=== PATIENT | male | born 1955 | race Caucasian/White ===

== ENCOUNTER 2020-08-11 19:39 | Emergency (ER) | payer BC ==
[~2020-08-11] VITALS: Ht 190.5 cm; Wt 86.1 kg
[2020-08-11 23:02] VITALS: BP 138/80
== END 2020-08-11 23:04 | disposition home or self-care (01) ==
LOC: ER 19:41
DX: K40.90 Unilateral inguinal hernia, without obstruction or gangrene, not specified as recurrent (principal); R10.31 Right lower quadrant pain
CPT/HCPCS: 99281

== ENCOUNTER 2020-09-18 10:23 | Emergency (ER) | payer BC ==
[~2020-09-18] VITALS: Ht 190.5 cm; Wt 84.1 kg
[2020-09-18] MEDS ORDERED: LOSA1TAB36 (11:12)
[2020-09-18] MEDS ORDERED: APIX5TAB3 (11:12)
[2020-09-18] MEDS ORDERED: HYDR-4353 PO (13:27)
[2020-09-18 13:37] VITALS: BP 129/86
== END 2020-09-18 13:54 | disposition home or self-care (01) ==
LOC: ER 10:23
DX: S82.143A Displaced bicondylar fracture of unspecified tibia, initial encounter for closed fracture (principal); S83.005A Unspecified dislocation of left patella, initial encounter; M17.12 Unilateral primary osteoarthritis, left knee; X50.9XXA Other and unspecified overexertion or strenuous movements or postures, initial encounter; Y93.02 Activity, running; Y92.89 Other specified places as the place of occurrence of the external cause; Y99.8 Other external cause status
CPT/HCPCS: 29505; 73564; 73700; 99284

== ENCOUNTER 2021-12-07 07:45 | Inpatient (IN) | payer BC ==
[2021-12-05 14:34] LABS: BASOPHILS # (AUTO) 0.1 X10'3 (0-0.2); BASOPHILS % (AUTO) 0.9 % (0-1); EOSINOPHILS # (AUTO) 0.1 X10'3 (0-0.9); EOSINOPHILS % (AUTO) 1.8 % (0-6); LYMPHOCYTES # (AUTO) 1.6 X10'3 (1.1-4.8); LYMPHOCYTES % (AUTO) 22.7 % (21-51); MEAN CORPUSCULAR HEMOGLOBIN 32.4 PG (27.0-31.0); MEAN CORPUSCULAR VOLUME 95.4 FL (78-98); MONOCYTES # (AUTO) 0.9 X10'3 (0-0.9); MONOCYTES % (AUTO) 13.2 % (2-12); NEUTROPHILS # (AUTO) 4.3 X10'3 (1.8-7.7); NEUTROPHILS % (AUTO) 61.4 % (42-75); PRE OP HEMATOCRIT 46.4 % (42.0-52.0); PRE OP HEMOGLOBIN 15.8 g/dL (14.0-17.9); PRE OP PLATELET COUNT 257 X10'3 (140-440); RED BLOOD COUNT 4.86 X10'6 (4.70-6.10)
[2021-12-05 14:36] LABS: CLARITY,URINE CLEAR (Clear); COLOR,URINE YELLOW (Yellow); GLUCOSE, URINE NEGATIVE (Neg); KETONES,URINE NEGATIVE (Neg); LEUKOCYTE ESTERASE ,URINE NEGATIVE (Neg); NITRITES, URINE NEGATIVE (Neg); OCCULT BLOOD,URINE NEGATIVE (Neg); PH,URINE 5.5 (4.8-8.0); PROTEIN,URINE NEGATIVE (Neg); UROBILINOGEN,URINE 0.2 E.U/dL (0.2-1.0)
[2021-12-05 14:49] LABS: PRE OP INR 1.2 INR; PRE OP PROTIME 11.9 SECONDS (9.0-12.0)
[2021-12-05 14:54] LABS: UA COLLECTION TYPE CLN CATCH MIDSTREAM
[2021-12-05 15:31] LABS: ALBUMIN 3.3 G/DL (3.4-5.0); ALBUMIN/GLOBULIN RATIO 0.9 (1.1-1.5); ALKALINE PHOSPHATASE 104 IU/L (46-116); BLOOD UREA NITROGEN 19 MG/DL (7-18); BUN/CREATININE RATIO 19.6 (5.4-32.0); CALCIUM 8.1 MG/DL (8.5-10.1); CHLORIDE 108 MMOL/L (99-107); CREATININE 0.97 MG/DL (0.60-1.10); PRE OP ALT 42 U/L (30-65); PRE OP ANION GAP 1 (8-16); PRE OP AST 31 U/L (10-37); PRE OP BILIRUB, TOTAL 0.8 MG/DL (0.0-1.0); PRE OP GLUCOSE 80 MG/DL (70-104); PRE OP SODIUM 140 MMOL/L (135-145); TOTAL CARBON DIOXIDE 30.6 MMOL/L (24-32); TOTAL PROTEIN 7.1 G/DL (6.4-8.2); eGFR 78 ML/MIN
[2021-12-06 07:41] LABS: ABG BASE EXCESS -0.8 mmol/L (-2.0-2.0); ABG HCO3 22.2 mmol/L (22.0-26.0); ABG OXYGEN SATURATION 96.5 % (94-97); ABG PCO2 (T) 32.7 mmHg (35.0-48.0); ABG PO2 (T) 76.9 mmHg (75.0-100.0); ALLEN'S TEST POSITIVE; FCOHb 1.9 % (0.0-3.9); FMetHb 0.1 % (0.0-1.5); FO2Hb 94.6 % (94-97); TOTAL HEMOGLOBIN 16.5 G/dl (14.0-18.0)
[~2021-12-07] VITALS: Ht 190.5 cm; Wt 87.5 kg
[2021-12-07] VITALS (14 sets, daily range): BP systolic 87–132; BP diastolic 49–81
[2021-12-07] MEDS: Insulin Reg/NS 100units/100mL 100 ML IV SCH (06:00)
[~2021-12-07 07:45] MED LIST: APIX5TAB3 PO; ATOR10TA87 PO; DOCUMENT DATE & TIME OF BETA-BLOCKER PO ONE; LOSA1TAB36 PO; MALTODEXTRIN/FRUCTOSE 0.68 KCAL/ML LIQUID 296ML BOTTLE PO ONE; SOTA80TA PO; dextrose 50%-water 50ml dispensing syringe IV PRN; famotidine 20mg tablet PO ONE; gabapentin 300mg capsule PO ONE; metoprolol tartrate 12.5mg (1/2 tablet) PO ONE; ringers solution, lacted 1,000 ML IV SCH
[2021-12-07] MEDS ORDERED: VANCOMYCIN 1,500MG inj. 1,500 MG in normal saline 250ml IV soln 300 ML IV ONE (09:05)
[2021-12-07] MEDS ORDERED: cefazolin/dext.iso 2gm/50ml 50 ML IV ONE (09:05)
[2021-12-07] MEDS ORDERED: LORazepam 2 mg/ml vial IV PRN (09:25)
[2021-12-07] MEDS: mupirocin 2% nasal ointment 1gm UD NS SCH ×3 (10:00→20:09)
[2021-12-07] MEDS ORDERED: methylPREDNISolone sod. succ. 500mg inj ONE (11:00)
[2021-12-07] MEDS ORDERED: sodium bicarbonate (8.4%) 1 mEq/ml syringe ONE (11:00)
[2021-12-07] MEDS ORDERED: MAGNESIUM SULFATE 4 MEQ/ML (5gm/10ml) injection ONE (11:00)
[2021-12-07] MEDS ORDERED: heparin 10,000 units/1 ML INJ ONE (11:00)
[2021-12-07] MEDS ORDERED: albumin (human) 25% 100 ML IV solution IV ONE (11:00)
[2021-12-07] MEDS ORDERED: aminocaproic acid 250 MG/1 ML inj. ONE (11:00)
[2021-12-07] MEDS ORDERED: heparin 1,000 units/ml 10ml inj ONE (11:00)
[2021-12-07] MEDS ORDERED: LIDOcaine 2% (20 mg/ml) 5ml cardiac syringe ONE (11:00)
[2021-12-07] MEDS ORDERED: calcium chloride 100 MG/1 ML inj IV ONE (11:00)
[2021-12-07] MEDS ORDERED: SUFENTANIL CITRATE 50 MCG/ML 2ml ampule IV ONE (11:08)
[2021-12-07] MEDS ORDERED: midazolam 1 mg/ML 2ml injection ONE (11:11)
[2021-12-07] MEDS ORDERED: epiNEPHrine 1 mg/ml inj ONE (11:40)
[2021-12-07 12:55] LABS: ABG BASE EXCESS -1.8 mmol/L (-2.0-2.0); ABG HCO3 23.3 mmol/L (22.0-26.0); ABG OXYGEN SATURATION 99.4 % (94-97); ABG PCO2 40.7 mmHg (35.0-48.0); ABG PO2 297.6 mmHg (75.0-100.0); CL (ABG) 104 mmol/L (98-110); FCOHb 0.5 % (0.0-3.9); FMetHb 0.3 % (0.0-1.5); FO2Hb 98.6 % (94-97); GLUCOSE (ABG) 104 mg/dl (70-105); IONIZED CA (ABG) 1.06 mmol/L (1.10-1.43); K (ABG) 4.4 mmol/L (3.5-5.0)
[2021-12-07] MEDS ORDERED: ceFAZolin 1000mg inj IR ONE (13:07)
[2021-12-07 13:33] LABS: ABG BASE EXCESS VENOUS -2.1 mmol/L (-2.0 - 2.0); ABG HCO3 VENOUS 23.9 mmol/L (21.0-28.0); ABG PCO2 VENOUS 45.9 mmHg (41.0-54.0); ABG PO2 VENOUS 59.9 mmHg (25.0-35.0); CL (ABG) 105 mmol/L (98-110); FCOHb VENOUS 1.2 %; FHHb VENOUS 9.6 %; FMetHb VENOUS 0.3 % (0.0 - 0.5); FO2Hb VENOUS 88.9 %; GLUCOSE (ABG) 160 mg/dl (70-105); IONIZED CA (ABG) 1.07 mmol/L (1.10-1.43); K (ABG) 4.2 mmol/L (3.5-5.0)
[2021-12-07] MEDS ORDERED: ipratropium/albuterol 3ml nebule IH PRN (13:35)
[2021-12-07 13:56] LABS: ABG BASE EXCESS -2.7 mmol/L (-2.0-2.0); ABG HCO3 21.3 mmol/L (22.0-26.0); ABG OXYGEN SATURATION 99.4 % (94-97); ABG PCO2 34.4 mmHg (35.0-48.0); ABG PO2 249.1 mmHg (75.0-100.0); CL (ABG) 105 mmol/L (98-110); FCOHb 0.8 % (0.0-3.9); FMetHb 0.3 % (0.0-1.5); FO2Hb 98.3 % (94-97); GLUCOSE (ABG) 174 mg/dl (70-105); IONIZED CA (ABG) 1.08 mmol/L (1.10-1.43); K (ABG) 4.9 mmol/L (3.5-5.0); TOTAL HEMOGLOBIN 11.9 G/dl (14.0-18.0)
[2021-12-07 14:28] LABS: ABG BASE EXCESS -0.6 mmol/L (-2.0-2.0); ABG HCO3 23.6 mmol/L (22.0-26.0); ABG OXYGEN SATURATION 99.5 % (94-97); ABG PO2 328.7 mmHg (75.0-100.0); CL (ABG) 105 mmol/L (98-110); FCOHb 0.8 % (0.0-3.9); FMetHb 0.3 % (0.0-1.5); FO2Hb 98.4 % (94-97); GLUCOSE (ABG) 147 mg/dl (70-105); IONIZED CA (ABG) 1.27 mmol/L (1.10-1.43); K (ABG) 5.3 mmol/L (3.5-5.0); TOTAL HEMOGLOBIN 11.6 G/dl (14.0-18.0)
[2021-12-07 14:51] LABS: ACTIVATED CLOTTING TIME 117 SEC (101-148)
[2021-12-07] MEDS ORDERED: LIDOcaine 2% (20mg/ml) 5ml vial ONE (15:18)
[2021-12-07] MEDS ORDERED: etomidate 2mg/ml inj. ONE (15:18)
[2021-12-07] MEDS ORDERED: phenylephrine 10mg/ml inj. ONE (15:18)
[2021-12-07] MEDS ORDERED: rocuronium 10mg/ml inj IV ONE (15:18)
[2021-12-07] MEDS ORDERED: bisacodyl 10mg suppository rectal RC PRN (15:25)
[2021-12-07] MEDS ORDERED: magnesium 2GM in 50ml NS 50 ML IV PRN (15:25)
[2021-12-07] MEDS ORDERED: magnesium 4gm in 100ml NS 100 ML IV PRN (15:25)
[2021-12-07] MEDS ORDERED: NORepinephrine 8mg/ 250ml NS 250 ML IV PRN (15:25)
[2021-12-07] MEDS ORDERED: sodium phosphate inj. 30 MMOL in dextrose 5%-water 250 ML IV PRN (15:25)
[2021-12-07] MEDS ORDERED: ondansetron/PF 4mg/2ml inj IV PRN (15:25)
[2021-12-07] MEDS ORDERED: dextrose 50%-water 50ml dispensing syringe IV PRN (15:25)
[2021-12-07] MEDS ORDERED: mineral oil 133ml enema RC PRN (15:25)
[2021-12-07] MEDS ORDERED: morphine 4 MG/ML inj SYRINge IV PRN (15:25)
[2021-12-07] MEDS ORDERED: acetaminophen 325mg tablet PO PRN (15:25)
[2021-12-07] MEDS ORDERED: insulin glargine (Lantus) pen - multi-dose SQ PRN (15:25)
[2021-12-07] MEDS ORDERED: niCARDipine-NS 40mg/200ml IVPB 200 ML IV PRN (15:25)
[2021-12-07] MEDS ORDERED: Insulin Reg/NS 100units/100mL 100 ML IV SCH (15:25)
[2021-12-07] MEDS ORDERED: HYDROcodone/acetaminophen 10/325mg tab PO PRN (15:25)
[2021-12-07] MEDS ORDERED: Neutra Phos packet PO PRN (15:25)
[2021-12-07] MEDS ORDERED: metoclopramide 5 mg/ml inj IV PRN (15:25)
[2021-12-07] MEDS ORDERED: magnesium citrate 296ml oral solution PO PRN (15:25)
[2021-12-07] MEDS ORDERED: sodium phosphate inj. 15 MMOL in dextrose 5%-water 250 ML IV PRN (15:25)
[2021-12-07] MEDS ORDERED: nitroGLYCERIN-Tridil 50MG/D5W 250 ML IV PRN (15:25)
[2021-12-07] MEDS ORDERED: magnesium hydroxide 30ml (MOM) UD suspension PO PRN (15:25)
[2021-12-07] MEDS ORDERED: morphine 2 MG/ML inj. syringe IV PRN (15:25)
--- NOTE | 2021-12-07 15:30 | NUR ---
Received to room , accompanied by MDs and surgical crew. Placed on ventilator, to monitor car operator, arterial line and PA line pressure monitored. Chest tubes to suction at 20 cm. Toth cath to gravity drainage. Dressings are dry and intact. See assessment record. All vasoactive drugs are infusing via central line.
[2021-12-07 15:40] LABS: ABG BASE EXCESS -2.2 mmol/L (-2.0-2.0); ABG HCO3 22.6 mmol/L (22.0-26.0); ABG OXYGEN SATURATION 98.9 % (94-97); ABG PCO2 (T) 38.8 mmHg (35.0-48.0); ABG PO2 (T) 194.5 mmHg (75.0-100.0); FCOHb 0.6 % (0.0-3.9); FMetHb 0.4 % (0.0-1.5); FO2Hb 97.9 % (94-97); PEEP 5 cm H2O; RESPIRATORY RATE 12 b/min; TIDAL VOLUME 650 mL; TOTAL HEMOGLOBIN 13.5 G/dl (14.0-18.0)
[2021-12-07 15:57] LABS: BASOPHILS % (AUTO) 0.3 % (0-1); EOSINOPHILS % (AUTO) 0.3 % (0-6); HEMATOCRIT 36.1 % (42.0-52.0); HEMOGLOBIN 12.6 g/dl (14.0-17.9); LYMPHOCYTES # (AUTO) 0.6 X10'3 (1.1-4.8); LYMPHOCYTES % (AUTO) 4.8 % (21-51); MEAN CORPUSCULAR HEMOGLOBIN 32.4 PG (27.0-31.0); MEAN CORPUSCULAR HGB CONC 34.9 g/dL (33.0-36.5); MEAN CORPUSCULAR VOLUME 92.8 FL (78-98); MEAN PLATELET VOLUME 7.5 FL (7.4-10.4); MONOCYTES # (AUTO) 0.6 X10'3 (0-0.9); MONOCYTES % (AUTO) 5.4 % (2-12); NEUTROPHILS # (AUTO) 10.8 X10'3 (1.8-7.7); NEUTROPHILS % (AUTO) 89.2 % (42-75); PLATELET COUNT 128 X10'3 (140-440); RED CELL DISTRIBUTION WIDTH 13.1 % (11.5-14.5); WHITE BLOOD COUNT 12.1 X10'3 (4.5-11.0)
[2021-12-07 16:10] LABS: APTT 29 SECONDS (22-32)
[2021-12-07 16:11] LABS: ALANINE AMINOTRANSFERASE 29 U/L (12-78); ALBUMIN 2.7 G/DL (3.4-5.0); ALBUMIN/GLOBULIN RATIO 1.1 (1.1-1.5); ALKALINE PHOSPHATASE 69 IU/L (46-116); ANION GAP 3 (8-16); ASPARTATE AMINO TRANSFERASE 35 U/L (10-37); BILIRUBIN,TOTAL 1.1 MG/DL (0.1-1.0); BLOOD UREA NITROGEN 13 MG/DL (7-18); BUN/CREATININE RATIO 12.5 (5.4-32.0); CALCIUM 8.1 MG/DL (8.5-10.1); CHLORIDE 111 MMOL/L (99-107); CREATININE 1.04 MG/DL (0.60-1.10); GLUCOSE 87 MG/DL (70-104); MAGNESIUM 3.9 MG/DL (1.5-2.4); SODIUM 140 MMOL/L (135-145); TOTAL CARBON DIOXIDE 25.8 MMOL/L (24-32); TOTAL PROTEIN 5.1 G/DL (6.4-8.2); eGFR 72 ML/MIN
[2021-12-07 16:16] LABS: POTASSIUM 3.8 MMOL/L (3.5-5.1)
[2021-12-07 16:18] LABS: PHOSPHORUS 1.2 MG/DL (2.3-4.5)
[2021-12-07] MEDS: sodium chloride 0.45% 1,000 ML IV SCH (17:00)
[2021-12-07 17:09] LABS: HEMOGLOBIN A1C 4.8 % (4.5-6.2)
[2021-12-07] MEDS: ceFAZolin/D5W- 1GM premix 50 ML IV SCH (17:45)
[2021-12-07] MEDS: potassium CL 10mEq/100ml bag 100 ML IV PRN (18:08)
--- NOTE | 2021-12-07 18:30 | NUR ---
Patient in room ICU 2042. I have received report from Genie SNOW and had the opportunity to ask questions and assume patient care.
[2021-12-07] MEDS ORDERED: DOPamine 400mg/D5W 250ml 250 ML IV SCH (19:15)
--- NOTE | 2021-12-07 19:40 | NUR ---
Patient opens eyes, following commands. Bradycardic in the 50s, hypotensive. Dr. Shaffer at bedside. Dopamine increased to 3mcg/kg/min per MD. HR increased to 77, BP improved. Will continue to monitor closely.
[2021-12-07] MEDS: sennosides/docusate sodium tablet PO SCH (20:00)
[2021-12-07] MEDS: lactobacillus rhamnosus 10,000 MMU CELLS/CAPSULE PO SCH (20:00)
[2021-12-07] MEDS: vancomycin/NS 1 GM ADD-VANTAGE 250 ML IV SCH (20:08)
[2021-12-07] MEDS: potassium Cl 20mEq/100mL bag 100 ML IV PRN ×2 (20:09→21:03)
[2021-12-07] MEDS: atorvastatin 10mg tablet PO SCH (20:10)
[2021-12-07] MEDS: gabapentin 300mg capsule PO SCH (20:10)
[2021-12-07 22:08] LABS: ABG BASE EXCESS -5.3 mmol/L (-2.0-2.0); ABG HCO3 18.7 mmol/L (22.0-26.0); ABG OXYGEN SATURATION 97.2 % (94-97); ABG PCO2 (T) 31.8 mmHg (35.0-48.0); ABG PO2 (T) 91.3 mmHg (75.0-100.0); FCOHb 0.7 % (0.0-3.9); FMetHb 0.3 % (0.0-1.5); FO2Hb 96.2 % (94-97); PATIENT TEMPERATURE 36.4; PEEP 5 cm H2O; TOTAL HEMOGLOBIN 15.3 G/dl (14.0-18.0)
--- NOTE | 2021-12-07 22:27 | NUR ---
2224: Extubated patient with RT after successful SBT. Patient awake and alert, sats 100% on 4LNC. Medicated for pain for pain level of 6/10 per patient statement.
[2021-12-07 22:40] LABS: BASOPHILS % (AUTO) 0.1 % (0-1); EOSINOPHILS % (AUTO) 0 % (0-6); HEMATOCRIT 41.9 % (42.0-52.0); HEMOGLOBIN 14.4 g/dl (14.0-17.9); LYMPHOCYTES # (AUTO) 0.4 X10'3 (1.1-4.8); LYMPHOCYTES % (AUTO) 2.9 % (21-51); MEAN CORPUSCULAR HEMOGLOBIN 32.2 PG (27.0-31.0); MEAN CORPUSCULAR HGB CONC 34.4 g/dL (33.0-36.5); MEAN CORPUSCULAR VOLUME 93.7 FL (78-98); MONOCYTES # (AUTO) 0.9 X10'3 (0-0.9); MONOCYTES % (AUTO) 6.2 % (2-12); NEUTROPHILS # (AUTO) 13.3 X10'3 (1.8-7.7); NEUTROPHILS % (AUTO) 90.8 % (42-75); PLATELET COUNT 113 X10'3 (140-440); RED BLOOD COUNT 4.47 X10'6 (4.70-6.10); RED CELL DISTRIBUTION WIDTH 13.4 % (11.5-14.5); WHITE BLOOD COUNT 14.6 X10'3 (4.5-11.0)
[2021-12-07] MEDS: pantoprazole 40MG/NS 100ML BAG 100 ML IV SCH (22:48)
[2021-12-07] MEDS: albumin (Human) 5% 250ml 250 ML IV PRN (22:50)
[2021-12-07 23:13] LABS: ANION GAP 11 (8-16); BLOOD UREA NITROGEN 15 MG/DL (7-18); BUN/CREATININE RATIO 15.3 (5.4-32.0); CALCIUM 8.2 MG/DL (8.5-10.1); CHLORIDE 111 MMOL/L (99-107); CREATININE 0.98 MG/DL (0.60-1.10); GLUCOSE 165 MG/DL (70-104); MAGNESIUM 2.8 MG/DL (1.5-2.4); PHOSPHORUS 3.1 MG/DL (2.3-4.5); POTASSIUM 4.4 MMOL/L (3.5-5.1); SODIUM 142 MMOL/L (135-145); TOTAL CARBON DIOXIDE 19.9 MMOL/L (24-32); eGFR 77 ML/MIN
[2021-12-08] VITALS (24 sets, daily range): BP systolic 89–117; BP diastolic 51–64
[2021-12-08] MEDS: ceFAZolin/D5W- 1GM premix 50 ML IV SCH ×4 (00:42→23:41)
[2021-12-08] MEDS: albumin (Human) 5% 250ml 250 ML IV PRN (00:43)
--- NOTE | 2021-12-08 02:17 | NUR ---
Patient nauseated with small amout of emesis. Zofran given.
[2021-12-08 02:47] LABS: APTT 26 SECONDS (22-32)
[2021-12-08 02:48] LABS: BASOPHILS % (AUTO) 0.2 % (0-1); EOSINOPHILS % (AUTO) 0 % (0-6); HEMOGLOBIN 12.4 g/dl (14.0-17.9); LYMPHOCYTES # (AUTO) 0.5 X10'3 (1.1-4.8); LYMPHOCYTES % (AUTO) 3.8 % (21-51); MEAN CORPUSCULAR HEMOGLOBIN 32.1 PG (27.0-31.0); MEAN CORPUSCULAR HGB CONC 34.4 g/dL (33.0-36.5); MEAN CORPUSCULAR VOLUME 93.3 FL (78-98); MEAN PLATELET VOLUME 7.8 FL (7.4-10.4); MONOCYTES # (AUTO) 0.7 X10'3 (0-0.9); MONOCYTES % (AUTO) 5.5 % (2-12); NEUTROPHILS % (AUTO) 90.5 % (42-75); PLATELET COUNT 83 X10'3 (140-440); RED BLOOD COUNT 3.85 X10'6 (4.70-6.10); RED CELL DISTRIBUTION WIDTH 13.7 % (11.5-14.5); WHITE BLOOD COUNT 12.2 X10'3 (4.5-11.0)
[2021-12-08 03:08] LABS: ALANINE AMINOTRANSFERASE 33 U/L (12-78); ALBUMIN 3.1 G/DL (3.4-5.0); ALBUMIN/GLOBULIN RATIO 1.6 (1.1-1.5); ALKALINE PHOSPHATASE 64 IU/L (46-116); ANION GAP 9 (8-16); ASPARTATE AMINO TRANSFERASE 46 U/L (10-37); BILIRUBIN,TOTAL 1.3 MG/DL (0.1-1.0); BLOOD UREA NITROGEN 14 MG/DL (7-18); BUN/CREATININE RATIO 15.4 (5.4-32.0); CALCIUM 8.3 MG/DL (8.5-10.1); CHLORIDE 112 MMOL/L (99-107); CREATININE 0.91 MG/DL (0.60-1.10); GLUCOSE 117 MG/DL (70-104); MAGNESIUM 2.6 MG/DL (1.5-2.4); PHOSPHORUS 3.1 MG/DL (2.3-4.5); POTASSIUM 3.7 MMOL/L (3.5-5.1); SODIUM 143 MMOL/L (135-145); TOTAL CARBON DIOXIDE 22.3 MMOL/L (24-32); TOTAL PROTEIN 5.1 G/DL (6.4-8.2); eGFR 84 ML/MIN
[2021-12-08] MEDS: potassium Cl 20mEq/100mL bag 100 ML IV PRN ×2 (03:44→04:39)
--- NOTE | 2021-12-08 06:12 | NUR ---
Problems reprioritized. Patient report given, questions answered & plan of care reviewed with Genie SNOW.
--- NOTE | 2021-12-08 06:30 | NUR ---
Patient in room ICU 2042. I have received report from natalya and had the opportunity to ask questions and assume patient care.
[2021-12-08] MEDS: metoprolol tartrate 12.5mg (1/2 tablet) PO SCH ×2 (08:00→20:00)
[2021-12-08] MEDS: mupirocin 2% nasal ointment 1gm UD NS SCH ×4 (08:00→20:05)
[2021-12-08] MEDS: vancomycin/NS 1 GM ADD-VANTAGE 250 ML IV SCH ×2 (08:06→19:57)
[2021-12-08] MEDS: sennosides/docusate sodium tablet PO SCH ×2 (08:07→19:50)
[2021-12-08] MEDS: aspirin 325mg tablet, delayed-release (Ecotrin) PO SCH (08:07)
[2021-12-08] MEDS: gabapentin 300mg capsule PO SCH ×3 (08:07→21:00)
[2021-12-08] MEDS: lactobacillus rhamnosus 10,000 MMU CELLS/CAPSULE PO SCH ×2 (08:07→19:50)
[2021-12-08] MEDS: pantoprazole 40MG/NS 100ML BAG 100 ML IV SCH ×2 (08:11→19:57)
[2021-12-08] MEDS: potassium CL 10mEq/100ml bag 100 ML IV PRN ×2 (08:12→12:00)
[2021-12-08] MEDS: HYDROcodone/acetaminophen 10/325mg tab PO PRN ×2 (08:35→20:32)
--- NOTE | 2021-12-08 09:26 | NUR ---
Nutrition consult: Pt POD #1 s/p aortic root replacement. Pt would benefit from protein education once stable. Will continue to follow. Addendum: 12/08/21 at [address] Amended: Links added.
--- NOTE | 2021-12-08 15:00 | NUR ---
levophed and dopamine weaned off early am. baldev dcd. up in chair x 2 hrs for lunch and ambulated with pt- tolerated well. tommie x 1. at bs
[2021-12-08] MEDS: Insulin Reg/NS 100units/100mL 100 ML IV SCH (15:20)
[2021-12-08] MEDS ORDERED: dextrose 50%-water 50ml dispensing syringe IV PRN ×2 (18:35)
[2021-12-08] MEDS ORDERED: dextrose ORAL solution 15 GM/59 ML bottle PO PRN ×2 (18:35)
[2021-12-08] MEDS ORDERED: glucagon, human recombinant 1mg kit SUBCUT PRN (18:35)
[2021-12-08] MEDS ORDERED: insulin Lispro (HumaLOG) vial - multi-dose SQ SCH (18:35)
[2021-12-08] MEDS: atorvastatin 10mg tablet PO SCH (19:55)
[2021-12-08] MEDS: acetaminophen 325mg tablet PO PRN (20:31)
[2021-12-08] MEDS: insulin glargine (Lantus) pen - multi-dose SQ SCH (21:00)
[2021-12-09] VITALS (23 sets, daily range): BP systolic 78–107; BP diastolic 43–63
[2021-12-09 03:11] LABS: BASOPHILS % (AUTO) 0 % (0-1); EOSINOPHILS % (AUTO) 0 % (0-6); HEMATOCRIT 31.4 % (42.0-52.0); HEMOGLOBIN 10.6 g/dl (14.0-17.9); LYMPHOCYTES # (AUTO) 1.1 X10'3 (1.1-4.8); MEAN CORPUSCULAR HGB CONC 33.7 g/dL (33.0-36.5); MEAN PLATELET VOLUME 8.6 FL (7.4-10.4); MONOCYTES # (AUTO) 1.8 X10'3 (0-0.9); NEUTROPHILS # (AUTO) 11.2 X10'3 (1.8-7.7); PLATELET COUNT 65 X10'3 (140-440); RED BLOOD COUNT 3.31 X10'6 (4.70-6.10); RED CELL DISTRIBUTION WIDTH 13.8 % (11.5-14.5); WHITE BLOOD COUNT 14.2 X10'3 (4.5-11.0)
[2021-12-09 03:29] LABS: ALBUMIN 2.5 G/DL (3.4-5.0); ANION GAP 5 (8-16); BLOOD UREA NITROGEN 16 MG/DL (7-18); BUN/CREATININE RATIO 15.4 (5.4-32.0); CALCIUM 7.9 MG/DL (8.5-10.1); CHLORIDE 105 MMOL/L (99-107); CREATININE 1.04 MG/DL (0.60-1.10); GLUCOSE 121 MG/DL (70-104); PHOSPHORUS 2.3 MG/DL (2.3-4.5); POTASSIUM 4.4 MMOL/L (3.5-5.1); SODIUM 137 MMOL/L (135-145); TOTAL CARBON DIOXIDE 27.3 MMOL/L (24-32); eGFR 72 ML/MIN
[2021-12-09] MEDS: potassium Cl 20 mEq SR tablet PO PRN (04:34)
[2021-12-09] MEDS: acetaminophen 325mg tablet PO PRN ×2 (04:34→20:12)
[2021-12-09] MEDS ORDERED: albumin (Human) 5% 250ml 250 ML IV ONE (05:35)
[2021-12-09] MEDS: pantoprazole 40MG/NS 100ML BAG 100 ML IV SCH ×2 (08:00→20:11)
[2021-12-09] MEDS: mupirocin 2% nasal ointment 1gm UD NS SCH ×3 (08:00→20:00)
[2021-12-09] MEDS: metoprolol tartrate 12.5mg (1/2 tablet) PO SCH ×2 (08:00→20:00)
[2021-12-09] MEDS: pantoprazole 40mg Tablet.DR PO SCH (08:15)
[2021-12-09] MEDS: aspirin 325mg tablet, delayed-release (Ecotrin) PO SCH (08:15)
[2021-12-09] MEDS: gabapentin 300mg capsule PO SCH ×2 (08:15→13:09)
[2021-12-09] MEDS: sennosides/docusate sodium tablet PO SCH ×2 (08:15→20:11)
[2021-12-09] MEDS: ascorbic acid 500mg tablet PO SCH ×2 (08:15→17:24)
[2021-12-09] MEDS: lactobacillus rhamnosus 10,000 MMU CELLS/CAPSULE PO SCH ×2 (08:15→20:11)
--- NOTE | 2021-12-09 11:58 | NUR ---
Nutrition consult: Pt s/p aortic root replacement this admit. Provided PtS/O w/ written and verbal high protein diet ed w/ RD contact info. Addendum: 12/09/21 at [address] Amended: Links added.
[2021-12-09] MEDS: sodium chloride 0.45% 1,000 ML IV SCH (15:25)
[2021-12-09] MEDS ORDERED: amiodarone 50MG/ML inj IV ONE (17:20)
[2021-12-09] MEDS ORDERED: amiodarone 150mg/dext, iso-os 100 ML IV ONE ×2 (17:22→17:30)
[2021-12-09] MEDS: amiodarone/D5 360MG/200ML BAG 200 ML IV SCH ×2 (17:51→23:28)
--- NOTE | 2021-12-09 18:14 | NUR ---
1707- pt went into rapid afib, call md. start amio 150 bolus over 30 min then gtt of 1mg/min rate.
[2021-12-09] MEDS: atorvastatin 10mg tablet PO SCH (20:11)
[2021-12-09] MEDS: guaiFENesin ER 600mg tablet PO SCH (20:11)
[2021-12-09] MEDS: insulin glargine (Lantus) pen - multi-dose SQ SCH (21:00)
[2021-12-09] MEDS: albumin (Human) 5% 250ml 250 ML IV PRN (23:07)
[2021-12-10] VITALS (20 sets, daily range): BP systolic 72–103; BP diastolic 38–73
[2021-12-10] MEDS: sodium chloride 0.45% 1,000 ML IV SCH (00:37)
[2021-12-10 02:29] LABS: BASOPHILS % (AUTO) 0.3 % (0-1); EOSINOPHILS % (AUTO) 0.1 % (0-6); HEMATOCRIT 30.1 % (42.0-52.0); HEMOGLOBIN 10.2 g/dl (14.0-17.9); LYMPHOCYTES % (AUTO) 13.6 % (21-51); MEAN CORPUSCULAR HEMOGLOBIN 32.2 PG (27.0-31.0); MEAN CORPUSCULAR HGB CONC 33.9 g/dL (33.0-36.5); MEAN CORPUSCULAR VOLUME 95.2 FL (78-98); MEAN PLATELET VOLUME 9.3 FL (7.4-10.4); MONOCYTES % (AUTO) 14.4 % (2-12); NEUTROPHILS # (AUTO) 5.2 X10'3 (1.8-7.7); NEUTROPHILS % (AUTO) 71.6 % (42-75); RED BLOOD COUNT 3.17 X10'6 (4.70-6.10); RED CELL DISTRIBUTION WIDTH 13.5 % (11.5-14.5); WHITE BLOOD COUNT 7.3 X10'3 (4.5-11.0)
[2021-12-10 02:35] LABS: PLATELET COUNT 46 X10'3 (140-440)
[2021-12-10 02:37] LABS: ALBUMIN 2.6 G/DL (3.4-5.0); ANION GAP 5 (8-16); BLOOD UREA NITROGEN 17 MG/DL (7-18); BUN/CREATININE RATIO 19.3 (5.4-32.0); CALCIUM 7.5 MG/DL (8.5-10.1); CHLORIDE 105 MMOL/L (99-107); CREATININE 0.88 MG/DL (0.60-1.10); GLUCOSE 125 MG/DL (70-104); MAGNESIUM 2.4 MG/DL (1.5-2.4); PHOSPHORUS 2.5 MG/DL (2.3-4.5); POTASSIUM 4.1 MMOL/L (3.5-5.1); SODIUM 136 MMOL/L (135-145); TOTAL CARBON DIOXIDE 25.6 MMOL/L (24-32); eGFR 87 ML/MIN
--- NOTE | 2021-12-10 03:48 | NUR ---
Plt count 46, Dr. Navarro notified. No new orders given.
[2021-12-10] MEDS: amiodarone/D5 360MG/200ML BAG 200 ML IV SCH ×3 (05:29→15:11)
[2021-12-10] MEDS ORDERED: albumin (Human) 5% 250ml 250 ML IV ONE (07:25)
[2021-12-10] MEDS: metoprolol tartrate 12.5mg (1/2 tablet) PO SCH ×2 (08:00→20:02)
[2021-12-10] MEDS: pantoprazole 40MG/NS 100ML BAG 100 ML IV SCH (08:00)
[2021-12-10] MEDS: aspirin 325mg tablet, delayed-release (Ecotrin) PO SCH (08:00)
[2021-12-10] MEDS: ascorbic acid 500mg tablet PO SCH ×2 (08:30→19:04)
[2021-12-10] MEDS: amiodarone 200mg tablet PO SCH ×2 (08:31→20:02)
[2021-12-10] MEDS: guaiFENesin ER 600mg tablet PO SCH ×2 (08:31→19:59)
[2021-12-10] MEDS: pantoprazole 40mg Tablet.DR PO SCH (08:31)
[2021-12-10] MEDS: sennosides/docusate sodium tablet PO SCH ×2 (08:32→19:59)
[2021-12-10] MEDS: potassium Cl 20 mEq SR tablet PO PRN (08:32)
[2021-12-10] MEDS: lactobacillus rhamnosus 10,000 MMU CELLS/CAPSULE PO SCH ×2 (08:32→20:02)
[2021-12-10 08:33] LABS: ACT @ 1.70 U 273 SEC (193-297); ACT @ 2.84 U 376 SEC (260-420); BASELINE ACT 135 SEC (101-148); PATIENT WEIGHT 84.0k KG
[2021-12-10] MEDS: mupirocin 2% nasal ointment 1gm UD NS SCH ×2 (08:38→20:00)
[2021-12-10 11:30] LABS: ALANINE AMINOTRANSFERASE 25 U/L (12-78); ALBUMIN/GLOBULIN RATIO 1.2 (1.1-1.5); ALKALINE PHOSPHATASE 61 IU/L (46-116); ASPARTATE AMINO TRANSFERASE 26 U/L (10-37); BILIRUBIN,DIRECT 0.1 MG/DL (0-0.3); BILIRUBIN,TOTAL 0.4 MG/DL (0.1-1.0); TOTAL PROTEIN 4.7 G/DL (6.4-8.2)
--- NOTE | 2021-12-10 15:04 | NUR ---
1000- Dr Navarro rounded, stop albumin, not needed. Chest tubes to be dc'd, cvl out, f/c out. Hold aspirin for platelets of 46. Ok to transfer to tele.
--- NOTE | 2021-12-10 15:05 | NUR ---
Report called to receiving nurseYogesh. Transferred via ambulatory with all elongings. Oriented to new room, notified receiving nurse.
--- NOTE | 2021-12-10 17:49 | NUR ---
Patient in room PCU 3009. I have received report from Macy and had the opportunity to ask questions and assume patient care.
[2021-12-10] MEDS: atorvastatin 10mg tablet PO SCH (21:00)
[2021-12-10] MEDS: insulin glargine (Lantus) pen - multi-dose SQ SCH (21:00)
[2021-12-11] VITALS (10 sets, daily range): BP systolic 86–108; BP diastolic 50–63
[2021-12-11 06:48] LABS: BASOPHILS % (AUTO) 0.3 % (0-1); EOSINOPHILS # (AUTO) 0.1 X10'3 (0-0.9); EOSINOPHILS % (AUTO) 0.8 % (0-6); HEMOGLOBIN 10.1 g/dl (14.0-17.9); LYMPHOCYTES # (AUTO) 0.9 X10'3 (1.1-4.8); LYMPHOCYTES % (AUTO) 10.7 % (21-51); MEAN CORPUSCULAR HEMOGLOBIN 32.7 PG (27.0-31.0); MEAN CORPUSCULAR HGB CONC 34.6 g/dL (33.0-36.5); MEAN CORPUSCULAR VOLUME 94.5 FL (78-98); MONOCYTES # (AUTO) 1.3 X10'3 (0-0.9); MONOCYTES % (AUTO) 15.4 % (2-12); NEUTROPHILS # (AUTO) 6.3 X10'3 (1.8-7.7); NEUTROPHILS % (AUTO) 72.8 % (42-75); PLATELET COUNT 69 X10'3 (140-440); RED BLOOD COUNT 3.07 X10'6 (4.70-6.10); RED CELL DISTRIBUTION WIDTH 13.4 % (11.5-14.5); WHITE BLOOD COUNT 8.7 X10'3 (4.5-11.0)
[2021-12-11 07:42] LABS: ALBUMIN 2.4 G/DL (3.4-5.0); ANION GAP 6 (8-16); BLOOD UREA NITROGEN 16 MG/DL (7-18); BUN/CREATININE RATIO 20.3 (5.4-32.0); CALCIUM 7.3 MG/DL (8.5-10.1); CHLORIDE 106 MMOL/L (99-107); CREATININE 0.79 MG/DL (0.60-1.10); GLUCOSE 94 MG/DL (70-104); MAGNESIUM 2.2 MG/DL (1.5-2.4); PHOSPHORUS 2.8 MG/DL (2.3-4.5); POTASSIUM 4.3 MMOL/L (3.5-5.1); SODIUM 138 MMOL/L (135-145); TOTAL CARBON DIOXIDE 25.6 MMOL/L (24-32); eGFR > 90 ML/MIN
[2021-12-11] MEDS: mupirocin 2% nasal ointment 1gm UD NS SCH ×2 (08:00→20:00)
[2021-12-11] MEDS: sennosides/docusate sodium tablet PO SCH ×2 (08:00→20:10)
--- NOTE | 2021-12-11 08:40 | NUR ---
Called Yuri BAE to let him know that patient is now in a.fib/a.flutter. He stated that he was going to start the patient on eliquis and that Dr. Warner is aware as well. I let the primary RN Jo know as well. Will continue to monitor.
[2021-12-11] MEDS: ascorbic acid 500mg tablet PO SCH ×2 (09:05→17:44)
[2021-12-11] MEDS: lactobacillus rhamnosus 10,000 MMU CELLS/CAPSULE PO SCH ×2 (09:05→20:10)
[2021-12-11] MEDS: aspirin 325mg tablet, delayed-release (Ecotrin) PO SCH (09:06)
[2021-12-11] MEDS: amiodarone 200mg tablet PO SCH ×2 (09:06→20:10)
[2021-12-11] MEDS: guaiFENesin ER 600mg tablet PO SCH ×2 (09:08→20:10)
[2021-12-11] MEDS: metoprolol tartrate 12.5mg (1/2 tablet) PO SCH (09:18)
[2021-12-11] MEDS: pantoprazole 40mg Tablet.DR PO SCH (10:19)
[2021-12-11] MEDS ORDERED: albumin (Human) 5% 250ml 250 ML IV STA (12:16)
[2021-12-11] MEDS ORDERED: ondansetron 4mg rapidly disintigrating tab PO PRN (12:20)
[2021-12-11] MEDS ORDERED: normal saline 250ml IV soln 250 ML IV ONE (12:35)
[2021-12-11] MEDS ORDERED: midodrine 5mg tablet PO STA (13:18)
[2021-12-11] MEDS ORDERED: midodrine tablet 2.5 MG TABLET PO STA (15:53)
[2021-12-11] MEDS ORDERED: midodrine 5mg tablet PO SCH (16:00)
[2021-12-11] MEDS: midodrine 5mg tablet PO SCH (16:22)
[2021-12-11] MEDS: sodium chloride 0.45% 1,000 ML IV SCH (16:26)
[2021-12-11] MEDS ORDERED: apixaban 2.5mg tablet PO SCH (20:00)
[2021-12-11] MEDS: atorvastatin 10mg tablet PO SCH (20:10)
[2021-12-11] MEDS: insulin glargine (Lantus) pen - multi-dose SQ SCH (21:00)
--- NOTE | 2021-12-11 21:00 | NUR ---
Pt reported not being a diabetic.
[2021-12-12] VITALS (9 sets, daily range): BP systolic 86–101; BP diastolic 43–64
[2021-12-12 06:00] LABS: MAGNESIUM 2.1 MG/DL (1.5-2.4); PHOSPHORUS 3.2 MG/DL (2.3-4.5)
[2021-12-12] MEDS: midodrine 5mg tablet PO SCH ×3 (07:27→16:40)
[2021-12-12] MEDS: amiodarone 200mg tablet PO SCH ×2 (07:27→19:54)
[2021-12-12] MEDS: guaiFENesin ER 600mg tablet PO SCH ×2 (07:28→19:54)
[2021-12-12] MEDS: pantoprazole 40mg Tablet.DR PO SCH (07:28)
[2021-12-12] MEDS: aspirin 325mg tablet, delayed-release (Ecotrin) PO SCH (07:29)
[2021-12-12] MEDS: lactobacillus rhamnosus 10,000 MMU CELLS/CAPSULE PO SCH ×2 (07:29→19:55)
[2021-12-12] MEDS: ascorbic acid 500mg tablet PO SCH ×2 (07:29→16:42)
[2021-12-12] MEDS: sennosides/docusate sodium tablet PO SCH ×2 (07:29→20:00)
[2021-12-12] MEDS: mupirocin 2% nasal ointment 1gm UD NS SCH ×2 (07:29→19:59)
[2021-12-12 08:12] LABS: BASOPHILS % (AUTO) 0.4 % (0-1); EOSINOPHILS # (AUTO) 0.1 X10'3 (0-0.9); EOSINOPHILS % (AUTO) 1.5 % (0-6); HEMATOCRIT 27.6 % (42.0-52.0); HEMOGLOBIN 9.5 g/dl (14.0-17.9); LYMPHOCYTES # (AUTO) 0.9 X10'3 (1.1-4.8); LYMPHOCYTES % (AUTO) 10.7 % (21-51); MEAN CORPUSCULAR HEMOGLOBIN 32.6 PG (27.0-31.0); MEAN CORPUSCULAR HGB CONC 34.4 g/dL (33.0-36.5); MEAN CORPUSCULAR VOLUME 94.7 FL (78-98); MEAN PLATELET VOLUME 9.3 FL (7.4-10.4); MONOCYTES # (AUTO) 1.4 X10'3 (0-0.9); NEUTROPHILS # (AUTO) 6.1 X10'3 (1.8-7.7); NEUTROPHILS % (AUTO) 71.4 % (42-75); PLATELET COUNT 93 X10'3 (140-440); RED BLOOD COUNT 2.91 X10'6 (4.70-6.10); RED CELL DISTRIBUTION WIDTH 13.6 % (11.5-14.5); WHITE BLOOD COUNT 8.6 X10'3 (4.5-11.0)
--- NOTE | 2021-12-12 09:16 | NUR ---
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 PO intake ~91% of no concentrated sweets meals, mostly meeting estimated nutritional needs. Pt could benefit from [place] smoothies BIDBD to promote wound healing. LBM 12/11; bowel care available PRN. No nutrition intervention at this time. Will continue to monitor. Recommendations: 1. Continue no concentrated sweets diet as tolerated 2. [place] smoothies BIDBD; pending MD verification 3. Bowel care per Rx 4. Weekly wt Addendum: 12/12/21 at [address] Amended: Links added. Addendum: 12/12/21 at [address] I have reviewed assessment by fashion styling intern
--- NOTE | 2021-12-12 18:18 | NUR ---
Problems reprioritized. Patient report given, questions answered & plan of care reviewed with Eliz SNOW.
[2021-12-12] MEDS: apixaban 2.5mg tablet PO SCH (19:55)
[2021-12-12] MEDS ORDERED: iohexol 350MG/ML 100ml bottle IV ONE (20:15)
[2021-12-12] MEDS: insulin glargine (Lantus) pen - multi-dose SQ SCH (21:00)
[2021-12-12] MEDS: atorvastatin 10mg tablet PO SCH (23:02)
[2021-12-13 00:49] VITALS: BP 97/55
[2021-12-13 02:00] VITALS: BP 97/62
[2021-12-13 06:42] LABS: MAGNESIUM 2.3 MG/DL (1.5-2.4); PHOSPHORUS 3.4 MG/DL (2.3-4.5); POTASSIUM 3.9 MMOL/L (3.5-5.1)
[2021-12-13] MEDS: sennosides/docusate sodium tablet PO SCH (08:00)
--- NOTE | 2021-12-13 08:18 | NUR ---
Floated to Med Surg and report passed to Zoe.
[2021-12-13] MEDS: lactobacillus rhamnosus 10,000 MMU CELLS/CAPSULE PO SCH (09:00)
[2021-12-13] MEDS: midodrine 5mg tablet PO SCH (09:01)
[2021-12-13] MEDS: amiodarone 200mg tablet PO SCH (09:02)
[2021-12-13] MEDS: ascorbic acid 500mg tablet PO SCH (09:02)
[2021-12-13] MEDS: apixaban 2.5mg tablet PO SCH (09:02)
[2021-12-13] MEDS: pantoprazole 40mg Tablet.DR PO SCH ×2 (09:03→09:37)
[2021-12-13] MEDS: guaiFENesin ER 600mg tablet PO SCH (09:03)
[2021-12-13] MEDS: aspirin 325mg tablet, delayed-release (Ecotrin) PO SCH ×2 (09:04→09:38)
[2021-12-13] MEDS: mupirocin 2% nasal ointment 1gm UD NS SCH (09:05)
[2021-12-13] MEDS ORDERED: MIDO5TAB4 PO (09:14)
[2021-12-13] MEDS ORDERED: VITC500T PO (09:14)
[2021-12-13] MEDS ORDERED: ASPI-1071 PO (09:14)
[2021-12-13] MEDS ORDERED: APIX5TAB3 PO (09:14)
[2021-12-13] MEDS ORDERED: AMIO200T67 PO (09:14)
[2021-12-13] MEDS ORDERED: HYDR-3972 PO (09:14)
--- NOTE | 2021-12-13 11:27 | NUR ---
DISCHARGED. TEACHING /INSTRUCTIONS GIVEN, INFORMED PRESCRIPTION AT [facility]. STATES HAVE ALL BELONGINGS.DENIES PAIN, INCISION TO CHEST AND LE WELL APPROXIMATED WITHOUT S/S OF INFECTION.QUESTIONS ANSWERED.INFORMED THE IMPORTANCE OF COMPLIANCE WITH MEDICATION AND KEEPING SCHEDULED MD APPTS. Addendum: 12/13/21 at 1207 by Zoe Muhammad RN Patient and spouse accompanied by staff to personal vehicle.
== END 2021-12-13 11:46 | disposition home or self-care (01) | DRG 220 ==
LOC: PAS IN 07:45 → ICU 2S 16:09 → PCU 3S 12-10 15:30
PROVIDERS: ADMIT Thoracic Surgery (Cardiothoracic Vascular Surgery); ATTEND Thoracic Surgery (Cardiothoracic Vascular Surgery)
PROC: 02RF08Z Replacement of Aortic Valve with Zooplastic Tissue, Open Approach (ICD-10-PCS; 2021-12-07)
PROC: 06BP0ZZ Excision of Right Saphenous Vein, Open Approach (ICD-10-PCS; 2021-12-07)
PROC: B24BZZ4 Ultrasonography of Heart with Aorta, Transesophageal (ICD-10-PCS; 2021-12-07)
PROC: 5A1223Z Performance of Cardiac Pacing, Continuous (ICD-10-PCS; 2021-12-07)
PROC: 02RX0JZ Replacement of Thoracic Aorta, Ascending/Arch with Synthetic Substitute, Open Approach (ICD-10-PCS; principal; 2021-12-07 11:40)
PROC: 0W9B3ZZ Drainage of Left Pleural Cavity, Percutaneous Approach (ICD-10-PCS; 2021-12-12)
PROC: B32T1ZZ Computerized Tomography (CT Scan) of Left Pulmonary Artery using Low Osmolar Contrast (ICD-10-PCS; 2021-12-12)
PROC: B3201ZZ Computerized Tomography (CT Scan) of Thoracic Aorta using Low Osmolar Contrast (ICD-10-PCS; 2021-12-12)
PROC: B32S1ZZ Computerized Tomography (CT Scan) of Right Pulmonary Artery using Low Osmolar Contrast (ICD-10-PCS; 2021-12-12)
DX: I71.2 Thoracic aortic aneurysm, without rupture (principal); J90 Pleural effusion, not elsewhere classified; J98.11 Atelectasis; I48.0 Paroxysmal atrial fibrillation; D69.6 Thrombocytopenia, unspecified; I35.1 Nonrheumatic aortic (valve) insufficiency; I95.9 Hypotension, unspecified; Z20.822 Contact with and (suspected) exposure to COVID-19
CPT/HCPCS: 32555; 93306; 93312; 93325; Z7506; Z7508; 36415; 36600; 71045; 71046; 71275; 80048; 80053; 80076; 81003; 82330; 82435; 82803; 82947; 82948; 83036; 83735; 84100; 84132; 84295; 84439; 84443; 85018; 85025; 85347; 85384; 85610; 85730; 86885; 86900; 86901; 86920; 87081; 87088; 87635; 93005; 93880; 94002; 94010; 94668; 94760; 97116; 97162; 97530; A4618; A6258; A6449; A7000; A7048; C1751; C1768; C9113; G0378; J0171; J0282; J0690; J1644; J1815; J2060; J2150; J2250; J2270; J2370; J2405; J2930; J3370; J3475; J3480; J3490; J7030; J7040; J7050; J7060; J7120; P9045; P9047; Q9967

== ENCOUNTER 2021-12-25 11:13 | Outpatient (CLI) | payer BC ==
[~2021-12-25 11:13] MED LIST changes: +AMIO200T67 PO; +ASPI-1071 PO; -DOCUMENT DATE & TIME OF BETA-BLOCKER PO ONE; +HYDR-3972 PO; -LOSA1TAB36 PO; -MALTODEXTRIN/FRUCTOSE 0.68 KCAL/ML LIQUID 296ML BOTTLE PO ONE; +MIDO5TAB4 PO; -SOTA80TA PO; +VITC500T PO; -dextrose 50%-water 50ml dispensing syringe IV PRN; -famotidine 20mg tablet PO ONE; -gabapentin 300mg capsule PO ONE; -metoprolol tartrate 12.5mg (1/2 tablet) PO ONE; -ringers solution, lacted 1,000 ML IV SCH
== END 2021-12-25 23:59 | disposition home or self-care (01) ==
LOC: LAB 11:13
PROVIDERS: ATTEND Thoracic Surgery (Cardiothoracic Vascular Surgery)
DX: J90 Pleural effusion, not elsewhere classified (principal); J98.11 Atelectasis
CPT/HCPCS: 71046

== ENCOUNTER 2025-02-28 10:27 | Emergency (ER) | payer MEDICARE, OTHER ==
[~2025-02-28] VITALS: Ht 190.5 cm; Wt 76.7 kg
[2025-02-28 11:53] VITALS: BP 130/76; PULSE 78; RESP 16; TEMP 98.7; O2SAT 98
[2025-03-02] MEDS ORDERED: LOSA-415 PO (15:16)
[2025-03-02] MEDS ORDERED: SOTA80TA73 PO (15:16)
[2025-03-02] MEDS ORDERED: APIX5TAB3 PO (15:16)
[2025-03-02] MEDS ORDERED: SYN0.088T PO (15:16)
== END 2025-02-28 12:00 | disposition home or self-care (01) ==
LOC: ER 10:27
DX: S82.431A Displaced oblique fracture of shaft of right fibula, initial encounter for closed fracture (principal); Z79.82 Long term (current) use of aspirin; X58.XXXA Exposure to other specified factors, initial encounter; Y93.89 Activity, other specified; Y92.89 Other specified places as the place of occurrence of the external cause; Y99.8 Other external cause status
CPT/HCPCS: 73610; 99283; A6446; A6449; L4360

== ENCOUNTER 2025-03-04 09:56 | Day surgery (SDC) | payer MEDICARE, OTHER ==
[2025-03-02 15:50] LABS: BILIRUBIN,URINE SMALL (Neg); CLARITY,URINE SLIGHTLY CLOUDY (Clear); COLOR,URINE YELLOW (Yellow); GLUCOSE, URINE NEGATIVE (Neg); KETONES,URINE TRACE mg/dl (Neg); LEUKOCYTE ESTERASE ,URINE NEGATIVE (Neg); OCCULT BLOOD,URINE NEGATIVE (Neg); PROTEIN,URINE TRACE mg/dl (Neg); UROBILINOGEN,URINE 0.2 E.U/dL (0.2-1.0)
[2025-03-02 15:53] LABS: BASOPHILS # (AUTO) 0.1 X10'3 (0-0.2); BASOPHILS % (AUTO) 1.2 % (0-1); EOSINOPHILS # (AUTO) 0.3 X10'3 (0-0.9); EOSINOPHILS % (AUTO) 3.4 % (0-6); LYMPHOCYTES # (AUTO) 1.7 X10'3 (1.1-4.8); LYMPHOCYTES % (AUTO) 22.5 % (21-51); MEAN CORPUSCULAR HEMOGLOBIN 32.9 PG (27.0-31.0); MEAN CORPUSCULAR HGB CONC 34.7 g/dL (33.0-36.5); MEAN PLATELET VOLUME 7.8 FL (7.4-10.4); MONOCYTES # (AUTO) 0.7 X10'3 (0-0.9); MONOCYTES % (AUTO) 9.8 % (2-12); NEUTROPHILS # (AUTO) 4.7 X10'3 (1.8-7.7); NEUTROPHILS % (AUTO) 63.1 % (42-75); PRE OP HEMATOCRIT 42.9 % (42.0-52.0); PRE OP HEMOGLOBIN 14.9 g/dL (14.0-17.9); PRE OP PLATELET COUNT 180 X10'3 (140-440); PRE OP WHITE BLOOD COUNT 7.5 10'3 (4.8-10.8); RED BLOOD COUNT 4.51 X10'6 (4.70-6.10)
[2025-03-02 16:08] LABS: NITRITES, URINE NEGATIVE (Neg); UA COLLECTION TYPE CLN CATCH MIDSTREAM
[2025-03-02 16:14] LABS: ALBUMIN 3.3 G/DL (3.4-5.0); ALBUMIN/GLOBULIN RATIO 0.9 (1.1-1.5); ALKALINE PHOSPHATASE 149 IU/L (46-116); BLOOD UREA NITROGEN 26 MG/DL (7-18); BUN/CREATININE RATIO 21.8 (10.0-20.0); CALCIUM 8.6 MG/DL (8.5-10.1); CHLORIDE 107 MMOL/L (99-107); CREATININE 1.19 MG/DL (0.60-1.10); PRE OP ALT 29 U/L (30-65); PRE OP ANION GAP 7 (8-16); PRE OP AST 31 U/L (10-37); PRE OP BILIRUB, TOTAL 0.7 MG/DL (0.0-1.0); PRE OP GLUCOSE 126 MG/DL (70-104); PRE OP POTASSIUM 3.6 MMOL/L (3.4-5.1); PRE OP SODIUM 143 MMOL/L (135-145); TOTAL CARBON DIOXIDE 28.6 MMOL/L (24-32); TOTAL PROTEIN 6.9 G/DL (6.4-8.2); eGFR 61 ML/MIN
[2025-03-02 16:15] LABS: BACTERIA,URINE FEW /HPF (Neg); MUCUS STRANDS MANY /LPF (Neg); RBC,URINE 0-2 /HPF (0-2); SQUAMOUS EPITHELIAL CELL,UR FEW /LPF (FEW); WBC,URINE 0-4 /HPF (0-4)
[2025-03-02 16:16] LABS: CAL OXALATE CRYSTALS 1+ /HPF (NEGATIVE)
[2025-03-04] VITALS (7 sets, daily range): BP systolic 113–135; BP diastolic 70–88; PULSE 46–53; RESP 12–16; TEMP 99; O2SAT 100
[~2025-03-04] VITALS: Ht 190.5 cm; Wt 77.2 kg
[2025-03-04] MEDS: ceFAZolin 2gm in dextrose, iso 50 ML IV ONE (05:30)
[~2025-03-04 09:56] MED LIST changes: -AMIO200T67 PO; -ASPI-1071 PO; +DOCUMENT DATE & TIME OF BETA-BLOCKER PO ONE; -HYDR-3972 PO; +LOSA-415 PO; -MIDO5TAB4 PO; +SOTA80TA73 PO; +SYN0.088T PO; -VITC500T PO; +enalaprilat 1.25mg/ml 2ml vial IV PRN; +labetalol 20mg/4ml (5mg/ml) syringe IV PRN; +meperidine/PF 25mg/ml syringe IV PRN; +morphine 2 MG/ML inj. syringe IV PRN; +morphine 4 MG/ML inj SYRINge IV PRN; +ondansetron/PF 4mg/2ml inj IV PRN; +proCHLORperazine 10 MG/2 ml inj IV PRN; +ringers solution, lacted 1,000 ML IV SCH
[2025-03-04] MEDS: famotidine 20mg tablet PO ONE (11:06)
[2025-03-04] MEDS: ringers solution, lacted 1,000 ML IV SCH (11:07)
[2025-03-04] MEDS ORDERED: bacitracin 15gm ointment TP ONE (13:19)
[2025-03-04] MEDS ORDERED: BUPIVAcaine 2.5mg/ml inj 50ml vial (contains preservative) ONE (13:19)
[2025-03-04] MEDS ORDERED: sevoflurane 250ml liquid IH ONE (14:17)
[2025-03-04] MEDS: BUPIVAcaine/PF 2.5 mg/ml (0.25%) 30ml vial IJ ONE (14:59)
[2025-03-04] MEDS ORDERED: propofol inj 40 ML IV ONE (15:25)
[2025-03-04] MEDS ORDERED: dexamethasone sod phosphate 4mg/ml inj. ONE (15:25)
[2025-03-04] MEDS ORDERED: ROPIVAcaine 0.5% (5mg/ml) 30ml vial ONE (15:25)
[2025-03-04] MEDS ORDERED: ondansetron/PF 4mg/2ml inj ONE (15:25)
[2025-03-04] MEDS ORDERED: ketorolac trometh 30MG/ML vial 30 MG/ML VIAL ONE (15:25)
[2025-03-04] MEDS ORDERED: LIDOcaine 1%/PF 5ML 10 MG/ML VIAL ONE (15:25)
[2025-03-04] MEDS ORDERED: acetaminophen 1,000mg/100ml IV 100 ML IV ONE (15:26)
[2025-03-04] MEDS ORDERED: etomidate 2mg/ml inj. ONE (15:26)
== END 2025-03-04 16:47 | disposition home or self-care (01) ==
LOC: PAS 09:56
PROVIDERS: ATTEND Podiatrist Foot & Ankle Surgery
DX: S82.891A Other fracture of right lower leg, initial encounter for closed fracture (principal); E78.5 Hyperlipidemia, unspecified; F41.9 Anxiety disorder, unspecified; M81.0 Age-related osteoporosis without current pathological fracture; X58.XXXA Exposure to other specified factors, initial encounter; Y93.89 Activity, other specified; Y92.89 Other specified places as the place of occurrence of the external cause; Y99.8 Other external cause status; Z79.899 Other long term (current) drug therapy; G89.18 Other acute postprocedural pain; Z98.890 Other specified postprocedural states; Z86.718 Personal history of other venous thrombosis and embolism
CPT/HCPCS: 27792; 36415; 64445; 64447; 73600; 80053; 81001; 82948; 85025; A4618; A6223; A6253; A6402; A6449; A7000; C1713; J0131; J0690; J1100; J1885; J2405; J2704; J2795; J3490; J7030; J7120; Z7506; Z7508; Z7512; Z7610